=== PATIENT | male | born 1985 | race Hispanic/Latino ===

== ENCOUNTER 2018-03-21 08:12 | Emergency (ER) | payer SELFPAY ==
[2018-03-21] MEDS ORDERED: Mag-Al 1200 mg/1200 mg/30 ML UDCUP ONE (09:30)
[2018-03-21] MEDS ORDERED: Lidocaine Viscous Sol 2% 15 ml UD Cup ONE (09:30)
[2018-03-21] MEDS ORDERED: Donnatal Elixir 16.2 MG/5 ML UDCUP PO SCH (09:45)
[2018-03-21] MEDS ORDERED: Lidocaine 2% Viscous Solution 20 ML, Aluminum & Magnesium Hydroxide 30 ML, Donnatal Eli... SSW SCH (09:45)
== END 2018-03-21 10:29 | disposition home or self-care (01) ==
LOC: ERS 08:12
DX: R10.13 Epigastric pain (principal)
CPT/HCPCS: 99283

== ENCOUNTER 2019-04-12 14:30 | Observation (INO) | payer BC, SELFPAY ==
[~2019-04-12 14:30] MED LIST: Dexamethasone 20 MG/5 ML VIAL ONE; Glycopyrrolate 0.2 MG/ML 5 ML SYRINGE ONE; Ketorolac Tromethamine 30 MG/ML VIAL ONE; Lidocaine 1% PF 5 ML VIAL ONE; Ondansetron PF 4 MG/2 ML Vial ONE; PHENYLEPHRINE-NS 100 MCG/ML 10 ML SYRINGE ONE; PROPOFOL 200 MG/20 ML VIAL ONE; Rocuronium Bromide 10 MG/ML (10ML VIAL) ONE; Succinylcholine Chloride 20 MG/ML 10 ml SYRINGE FS ONE; ePHEDrine 50 MG/ML VIAL ONE
[2019-04-12] MEDS ORDERED: Bupivacaine/Epinephrine 0.25% 30 ML VIAL ONE (14:36)
[2019-04-12] MEDS ORDERED: HYDROmorphone 0.5 MG/0.5 ML SYRINGE ONE (15:09)
[2019-04-12] MEDS ORDERED: Fentanyl 100 MCG/2 ML VIAL ONE (15:09)
--- NOTE | 2019-04-12 15:44 | HP ---
HISTORY OF PRESENT ILLNESS: Mr. Keita is a 33-year-old man, who presented to the local stand-alone emergency department with report of insidious onset, which started as a periumbilical abdominal pain, which started yesterday and has not intensified overnight, and now referred to the right lower quadrant. Pain was associated with one episode of nausea yesterday. He has had no emesis. The patient admits to some chills, but no fever. He denies any diarrhea. PAST MEDICAL HISTORY: Denies any previous medical problems. PAST SURGICAL HISTORY: He has had no previous surgeries. SOCIAL HISTORY: He is a welder gas tungsten arc. He is engaged to be . He has a very remote history of marijuana use. He denies any cigarette smoking or other illicit drug abuse. He admits to occasional intake of ethanol in moderate amounts. FAMILY HISTORY: Denies any family history of diabetes mellitus, heart disease, hypertension or cancer. CURRENT MEDICATIONS: None. ALLERGIES: THE PATIENT DENIES ANY KNOWN DRUG ALLERGIES. REVIEW OF SYSTEMS: Ten-point review of systems essentially unremarkable except as stated in past medical history and chief complaint. PHYSICAL EXAMINATION: GENERAL: This reveals a 33-year-old normally developed man, who is otherwise coherent and interactive, and appears stated age. The patient is alert and oriented x3. He appears to be in no acute distress at time of my evaluation. VITAL SIGNS: Include blood pressure 115/71, pulse 106, respiratory rate is 18, temperature 97.9 degrees Fahrenheit, oxygen saturation is 95% on room air. HEENT: Reveals normocephalic and atraumatic. Pupils are equal, round, reactive to light and accommodation. HEART: Reveals regular rate with sinus tachycardia. No murmurs or gallops auscultated. LUNGS: Clear to auscultation bilaterally. Breathing, regular and nonlabored. ABDOMEN: Soft and nondistended. He has right lower quadrant tenderness at McBurney's. He has a positive Rovsing sign. Liver and spleen are nonpalpable below costal margin. NEUROLOGIC: Reveals no focal deficits present. LABORATORY DATA: Accompanying laboratory studies from [facility] include a CBC with 4900 white blood cells, hemoglobin and hematocrit of 15.1 and 44.0 respectively, platelet count is 163,000. Metabolic profile; glucose 117, BUN is 15, creatinine is 0.8, sodium 130, potassium 3.5, chloride is 106, bicarb is 17, AST and ALT noted at 25 and 31 respectively. Arterial blood gas; pH 7.47, pCO2 of 20, pO2 of 67, lactic acid 4.12, bicarb 14.7, oxygen saturation 95% with a base excess of -9. I have personally reviewed accompanying CT scan of the abdomen and pelvis, which reveals dilated appendix with periappendiceal fat stranding and small periappendiceal fluid collection. IMPRESSION: 1. Acute appendicitis, possibly with rupture. 2. Acute lactic acidosis. PLAN: Laparoscopic Appendectomy and IV fluid resuscitation. Broad-spectrum antibiotics has been initiated. Above findings and plan has been discussed with the patient. I have advised the patient of the risks and benefits of proposed surgery to include, but not limited to bleeding, infection, injury to bowel or surrounding structures. The patient indicates understanding of information provided to him today in the presence of his nurse. I have answered his questions. The patient has granted consent for this admission and surgical intervention. Job ID: [id number] [facility]
[2019-04-12] MEDS ORDERED: Dextrose 5% in Water 1,000 ML IV PRN (16:41)
[2019-04-12] MEDS ORDERED: Dextrose 50% Abboject 50 ML SYRINGE SLOW IVP PRN (16:41)
[2019-04-12] MEDS ORDERED: Promethazine HCl 25 MG/ML VIAL IM PRN ×2 (16:41→16:55)
[2019-04-12] MEDS ORDERED: hydrALAZINE 20 MG/ML VIAL SLOW IVP PRN (16:41)
[2019-04-12] MEDS ORDERED: Ondansetron PF 4 MG/2 ML Vial IVP PRN (16:41)
[2019-04-12] MEDS ORDERED: traMADol HCl 50 MG TAB PO PRN ×2 (16:45)
[2019-04-12] MEDS ORDERED: HYDROmorphone 2 MG/ML VIAL SLOW IVP PRN (16:55)
[2019-04-12] MEDS ORDERED: Promethazine HCl 25 MG/ML VIAL SLOW IVP PRN (16:55)
[2019-04-12] MEDS ORDERED: Ondansetron HCl/PF 4 MG/2 ML Vial IVP PRN (16:55)
[2019-04-12] MEDS ORDERED: PACU-Morphine 4MG/ML VIAL SLOW IVP PRN (16:55)
--- NOTE | 2019-04-12 17:26 | OP ---
DATE OF PROCEDURE: 04/12/2019 PREOPERATIVE DIAGNOSIS: Acute appendicitis. POSTOPERATIVE DIAGNOSIS: Acute gangrenous appendicitis with perforation. OPERATION PERFORMED: Laparoscopic appendectomy. ANESTHESIA: General endotracheal. ESTIMATED BLOOD LOSS: 10 mL. FLUIDS GIVEN: 900 mL crystalloids. COUNTS: Sponge and instrument counts were verified as correct x2. COMPLICATIONS: None apparent. INDICATIONS FOR OPERATION: A 33-year-old man presented with abdominal pain. Clinical and radiographic examination was consistent with acute appendicitis, for which the patient was brought to the operating room for appendectomy. Findings are consistent with gangrenous retrocecal appendix with perforation and small purulent fluid collection in the pelvis. DESCRIPTION OF PROCEDURE: Informed consent was obtained from the patient. He was brought to the operating room and placed in supine position. Following general anesthesia, abdomen was sterilely prepped and draped in the usual fashion. The skin below the umbilicus was infiltrated with 0.25% Marcaine with epinephrine. A small curvilinear infraumbilical incision was made using an 11 scalpel. Umbilical stalk grasped with Fiordaliza and elevated. Veress needle was inserted through the incision and placed in peritoneal cavity, through which the abdomen was insufflated with 3 L of CO2 gas. Intraabdominal pressure was noted at 2 mmHg. Following abdominal insufflation, Veress needle was removed and a 5-mm trocar introduced using a Visiport under laparoscopy. Laparoscopy confirmed proper placement of the port and no injuries to underlying structures. Additional laparoscopy revealed the right lower quadrant completely obscured by omental adhesions. Under direct laparoscopy, two 5-mm suprapubic and left lower quadrant ports were placed after the overlying skin was infiltrated with 0.25% Marcaine with epinephrine. Appropriate incision was made. The patient was placed in a Trendelenburg position, rotated to his left. I introduced a Prestige grasper through the left lower quadrant port site, using this to bluntly take down omental adhesions to expose retrocecal gangrenous appendix, which was densely adhered to the right lateral gutter. I then introduced the Endo Tullos forceps through the suprapubic port site, grasping the appendix, which was elevated. Fibrotic lateral wall attachments were taken down using LigaSure device. The mesoappendix was then serially divided at the base using the LigaSure device with good hemostasis. Appendix itself was divided at the appendico-cecal junction between endo-loops. The gangrenous appendix was delivered of the abdominal cavity using an EndoCatch. Small bowel was run from the ileocecal junction down to proximal 3 feet. No Meckel diverticulum noted. Laparoscopic evaluation of the pelvis revealed purulent fluid collection, which was evacuated using suction. The operative site was irrigated with saline solution, noting good hemostasis. Finding no other pathology. Laparoscopy was terminated. The abdomen was desufflated and all ports and instruments were removed and accounted for. Skin incision was closed using 4-0 Monocryl suture in subcuticular fashion. Dermabond was applied over incisional closure. The patient tolerated the operation without any apparent complication and was returned to recovery room in satisfactory condition. Job ID: [id number]
[2019-04-12] MEDS: Ketorolac Tromethamine 30 MG/ML VIAL IVP SCH ×3 (17:49→23:22)
[2019-04-12 17:58] VITALS: BMI 29.7
[2019-04-12] MEDS: Lactated Ringer's 1,000 ML IV SCH (17:59)
[2019-04-12] MEDS: Acetaminophen 500 MG TAB PO SCH ×2 (17:59→23:19)
[2019-04-12] MEDS: Piperacillin/Tazobactam 3.375 GM in Sodium Chloride 0.9% 100 ML IVPB SCH ×2 (18:06→23:19)
[2019-04-12] MEDS: Famotidine 20 MG TAB PO SCH (20:04)
[2019-04-12] MEDS ORDERED: Enoxaparin Sodium 40 MG/0.4 ML SYRINGE SC SCH (21:00)
[2019-04-12] MEDS ORDERED: Famotidine/PF 20 mg/2ml Vial SLOW IVP SCH (21:00)
--- NOTE | 2019-04-13 01:34 | PRG ---
DATE OF SERVICE: 04/13/2019 SUBJECTIVE: The patient is currently on the surgical floor. He is postop from a laparoscopic appendectomy performed today. He was admitted today. Postoperatively, he is tolerating a diet and he has voided. Denies any pain or nausea. PHYSICAL EXAMINATION: VITAL SIGNS: Stable. The patient is afebrile. GENERAL: The patient is resting comfortably in bed. He is awake, alert, appears in no distress. RESPIRATORY: Respirations nonlabored. ABDOMEN: Minimally tender without peritoneal signs. ASSESSMENT: Status post laparoscopic appendectomy. PLAN: Plan will be to evaluate the patient in the morning. The patient did not have a drain placed and has postop antibiotics, but does not appear that he will be here for an extended stay, likely be discharged home tomorrow. Job ID: [id number]
[2019-04-13] MEDS: Lactated Ringer's 1,000 ML IV SCH (04:20)
[2019-04-13] MEDS: Piperacillin/Tazobactam 3.375 GM in Sodium Chloride 0.9% 100 ML IVPB SCH (05:19)
[2019-04-13] MEDS: Acetaminophen 500 MG TAB PO SCH (05:27)
[2019-04-13] MEDS: Ketorolac Tromethamine 30 MG/ML VIAL IVP SCH (05:28)
[2019-04-13 05:41] LABS: #Lymphocytes 0.7 thou/uL (1.20-3.40); #Monocytes 0.8 thou/uL (0.11-0.59); #Neutrophils 14.3 thou/uL (1.40-6.50); %Eosinophils 0.2 % (0.0-10.0); %Lymphocytes 4.3 % (21.0-51.0); %Monocytes 4.9 % (0.0-10.0); %Neutrophils 90.5 % (42.0-75.0); Hemoglobin 12.8 g/dL (14.0-18.0); Mean Corpuscular HGB CONC 34.3 g/dL (32.0-36.0); Mean Corpuscular Hemoglobin 30.2 pg (27.0-31.0); Mean Platelet Volume 7.8 fL (7.4-10.4); Platelet Count 151 thou/uL (130-400); RBC Distribution Width 12.5 % (11.5-14.5); Red Blood Cell (RBC) Count 4.26 mill/uL (4.70-6.10); White Blood Cell (WBC) Count 15.8 thou/uL (4.8-10.8)
[2019-04-13 06:01] LABS: Lactic Acid 1.1 mmol/L (0.5-2.2)
[2019-04-13 06:04] LABS: Anion Gap 11 mmol/L (10-20); BUN (Urea Nitrogen) 17 mg/dL (8.9-20.6); Calc. Creatinine Clearance 153 mL/min (70-130); Calcium 8.4 mg/dL (7.8-10.44); Carbon Dioxide 23 mmol/L (22-29); Chloride 108 mmol/L (98-107); Estimated GFR-MDRD 88; Glucose 130 mg/dL (70-105); Potassium 3.9 mmol/L (3.5-5.1); Sodium 138 mmol/L (136-145)
[2019-04-13] MEDS: Famotidine 20 MG TAB PO SCH (07:48)
[2019-04-13 11:22] VITALS: BP 123/77; TEMP 97.5
[2019-04-13] MEDS ORDERED: FLU VACC QS2019-20(6MOS UP)/PF 60 MCG/0.5 ML SYRINGE IM ONE (21:00)
== END 2019-04-13 11:38 | disposition home or self-care (01) ==
LOC: SDC 14:30 → SURG B 17:21
PROVIDERS: ADMIT Surgery; ATTEND Surgery
PROC: 0DTJ4ZZ Resection of Appendix, Percutaneous Endoscopic Approach (ICD-10-PCS; principal; 2019-04-12)
DX: K35.32 Acute appendicitis with perforation, localized peritonitis, and gangrene, without abscess (principal); E87.2 Acidosis
CPT/HCPCS: 36415; 80048; 83605; 85025; 88304; 96361; 96365; 96366; 96372; G0378; J1100; J1170; J1650; J1885; J2001; J2405; J2543; J2704; J3010; J3490